=== PATIENT | male | born 1955 | race Caucasian/White ===

== ENCOUNTER → 2019-04-01 | Outpatient (CLI) | payer OTHER | END | disposition home or self-care (01) | LOC: CFH 08:09 | PROVIDERS: ATTEND Internal Medicine Cardiovascular Disease | DX: Z13.6 Encounter for screening for cardiovascular disorders (principal); J84.10 Pulmonary fibrosis, unspecified; J98.6 Disorders of diaphragm; I25.10 Atherosclerotic heart disease of native coronary artery without angina pectoris; I10 Essential (primary) hypertension | CPT/HCPCS: 75571 ==